=== PATIENT | female | born 1940 | race Caucasian/White ===

== ENCOUNTER 2020-06-01 15:26 | Outpatient (REF) | payer MEDICARE, SELFPAY ==
[2020-06-02 10:55] LABS: SARS COV2 PCR INHOUSE NEGATIVE (Negative)
== END 2020-06-01 15:27 | disposition home or self-care (01) ==
LOC: HO.LAB 15:26
PROVIDERS: Visit Provider Internal Medicine
DX: Z20.822 Contact with and (suspected) exposure to COVID-19 (principal)
CPT/HCPCS: C9803; U0003

== ENCOUNTER 2020-07-18 13:07 | Outpatient (REF) | payer MEDICARE, SELFPAY ==
[2020-07-18 14:38] LABS: Alanine Aminotransferase 18 U/L (0-31); Albumin Level 4.5 g/dL (3.5-5.0); Alkaline Phosphatase 84 U/L (39-117); Anion Gap 16 (12-20); Aspartate Amino Transferase 19 U/L (5-31); Bilirubin Direct 0.2 mg/dL (0.0-0.5); Bilirubin Total 0.5 mg/dL (0.0-1.0); Blood Urea Nitrogen 26 mg/dL (9-16); Calcium 9.2 mg/dL (8.4-10.2); Carbon Dioxide 22 mmol/L (22-29); Chloride 109 mmol/L (96-108); Estimated Glomerular Filt Rate 45; Glucose Random 92 mg/dL (60-115); Magnesium 2.1 mg/dL (1.6-2.6); Phosphorus 3.5 mg/dL (2.7-4.5); Potassium 4.6 mmol/L (3.3-5.1); Sodium 142 mmol/L (135-145); Total Protein 7.5 g/dL (6.5-8.0)
== END 2020-07-18 13:08 | disposition home or self-care (01) ==
LOC: HO.LAB 13:07
PROVIDERS: Visit Provider Psychiatry & Neurology Neurology
DX: G25.3 Myoclonus (principal)
CPT/HCPCS: 36415; 80048; 80076; 82140; 83735; 84100

== ENCOUNTER 2020-08-04 10:59 | Outpatient (REF) | payer MEDICARE, SELFPAY ==
[2020-08-04 11:35] LABS: Ammonia 33 umol/L (13-55)
== END 2020-08-04 11:00 | disposition home or self-care (01) ==
LOC: HO.LAB 10:59
PROVIDERS: Visit Provider Psychiatry & Neurology Neurology
DX: G25.3 Myoclonus (principal)
CPT/HCPCS: 36415; 82140

== ENCOUNTER 2021-02-20 01:32 | Outpatient (REF) | payer SELFPAY | END 2021-02-20 01:33 | disposition home or self-care (01) | LOC: HO.MMNH1L 01:32 | PROVIDERS: Visit Provider Family Medicine | DX: Z13.89 Encounter for screening for other disorder (principal) ==